=== PATIENT | male | born 1985 | race Hispanic/Latino ===

== ENCOUNTER 2017-05-16 19:46 | Emergency (ER) | payer OTHER ==
[2017-05-16 19:55] VITALS: PULSE 66; TEMP 98.1; O2SAT 97
[2017-05-16] MEDS ORDERED: Albuterol-Ipratrop 3 mg / 0.5 (3 ml) UD INH STA (20:00)
--- NOTE | 2017-05-16 20:14 | ED PDOC ---
HPI: SOB/CHF/COPD Time Seen by Provider: 05/16/17 19:55 Chief Complaint (Nursing): Shortness Of Breath Chief Complaint (Provider): Shortness Of Breath History Per: Patient History/Exam Limitations: no limitations Onset/Duration Of Symptoms: Days (x 5) Current Symptoms Are (Timing): Still Present Additional Complaint(s): Leonardo is a 31 y/o male who presents to the ED complaining of a productive cough associated with shortness of breath, for the past 5 days. Cough is intermittently productive of phlegm. Denies any associated fever, vomiting, or nausea. Taking Klonipin and Clonidine for anxiety. Patient states he feels like he can't get enough air/oxygen, which is causing him to feel more anxious. PMD: Unknown Past Medical History Reviewed: Historical Data, Nursing Documentation, Vital Signs Vital Signs: Last Vital Signs Temp 98.1 F 05/16/17 19:53 Pulse 66 05/16/17 19:53 Resp 18 05/16/17 20:29 BP 155/65 H 05/16/17 19:53 Pulse Ox 97 05/16/17 21:19 - Medical History PMH: Anxiety - Family History Family History: States: Unknown Family Hx - Social History Current smoker - smoking cessation education provided: No - Allergies Allergies/Adverse Reactions: Allergies Allergy/AdvReac Type Severity Reaction Status Date / Time No Known Allergies Allergy Verified 05/16/17 19:53 Review of Systems ROS Statement: Except As Marked, All Systems Reviewed And Found Negative Constitutional: Negative for: Fever Respiratory: Positive for: Cough, Shortness of Breath Gastrointestinal: Negative for: Nausea, Vomiting Physical Exam - Reviewed Nursing Documentation Reviewed: Yes Vital Signs Reviewed: Yes - Physical Exam Appears: Positive for: Non-toxic, No Acute Distress Head Exam: Positive for: ATRAUMATIC, NORMAL INSPECTION, NORMOCEPHALIC Skin: Positive for: Normal Color, Warm, Dry Eye Exam: Positive for: EOMI, Normal appearance, PERRL ENT: Positive for: Normal ENT Inspection Neck: Positive for: Normal, Painless ROM Cardiovascular/Chest: Positive for: Regular Rate, Rhythm. Negative for: Murmur Respiratory: Positive for: Rhonchi (bilaterally) Extremity: Positive for: Normal ROM, Capillary Refill (< 2 sec). Negative for: Deformity Neurologic/Psych: Positive for: Alert, Oriented - ECG ECG Rhythm: Positive for: Sinus Rhythm (nsr 61 bpm;no ectopy no acute changes) O2 Sat by Pulse Oximetry: 97 (RA) Pulse Ox Interpretation: Normal - Progress ED Course And Treament: duoneb x 1 dose without improvement Upon re-questioning, patient states he has not had any coughing but has been worried about mold allergy. Does not want anxiety medication here as he has medications at home. cxr: nad Medical Decision Making Medical Decision Making: Time: 20:00 Plan: --Will give Duoneb and Xopenex treatments INH --[facility] pre/post treatment Time: 21:13 --Ordered Chest X-Ray Scribe Attestation: Documented by Cindi Spivey, acting as a scribe for Wilton Heredia PA-C Provider Scribe Attestation: All medical record entries made by the Scribe were at my direction and personally dictated by me. I have reviewed the chart and agree that the record accurately reflects my personal performance of the history, physical exam, medical decision making, and the department course for this patient. I have also personally directed, reviewed, and agree with the discharge instructions and disposition. Disposition - Clinical Impression Clinical Impression: Anxiety - Patient ED Disposition Is Patient to be Admitted: No - Disposition Disposition: Routine/Home Disposition Time: 21:47 Condition: FAIR Instructions: Anxiety (ED) Forms: [employer] ([employer])
[2017-05-16] MEDS ORDERED: Albuterol-Ipratrop 3 mg / 0.5 (3 ml) UD ONE (20:27)
[2017-05-16 20:32] VITALS: RESP 18
[2017-05-16 22:08] VITALS: BP 143/66
--- NOTE | 2017-05-17 11:17 | RAD ---
HISTORY: Shortness of breath COMPARISON: No prior. TECHNIQUE: Chest PA and lateral FINDINGS: LUNGS: No active pulmonary disease. PLEURA: No significant pleural effusion identified. No pneumothorax apparent. CARDIOVASCULAR: Normal. OSSEOUS STRUCTURES: No significant abnormalities. VISUALIZED UPPER ABDOMEN: Normal. OTHER FINDINGS: None. IMPRESSION: No active disease.
== END 2017-05-16 22:07 | disposition home or self-care (01) ==
LOC: H.ER 19:46
DX: F41.9 Anxiety disorder, unspecified (principal)